=== PATIENT | female | born 1980 | race Caucasian/White ===

== ENCOUNTER 2021-04-02 09:30 | Outpatient (RCR) | payer OTHER, SELFPAY | END 2021-05-02 13:19 | disposition home or self-care (01) | LOC: HO.WCC 09:30 | PROVIDERS: Visit Provider Physician Assistant | DX: I87.332 Chronic venous hypertension (idiopathic) with ulcer and inflammation of left lower extremity (principal); L97.822 Non-pressure chronic ulcer of other part of left lower leg with fat layer exposed; F17.200 Nicotine dependence, unspecified, uncomplicated; F11.20 Opioid dependence, uncomplicated; Z71.6 Tobacco abuse counseling | CPT/HCPCS: 11042; 99212 ==